=== PATIENT | female | born 1980 | race Caucasian/White ===

== ENCOUNTER → 2016-05-18 | Outpatient (CLI) | payer BC ==
[~2016-05-18] MED LIST: MISC-696; PEDICHW50 PO
== END | disposition home or self-care (01) ==
LOC: C.PAPS 08:28
PROVIDERS: ATTEND Obstetrics & Gynecology
DX: Z01.419 Encounter for gynecological examination (general) (routine) without abnormal findings (principal)

== ENCOUNTER → 2017-05-27 | Outpatient (CLI) | payer BC ==
[~2017-05-27] MED LIST changes: -MISC-696; +MISC-836
[2017-05-27 16:47] LABS: BASO % 0.2 %; BASO ABS # 0.02 K/uL (0-0.2); EOS % 0.1 %; EOS ABS # 0.01 K/uL (0-0.5); HEMATOCRIT 44.7 % (37-47); HEMOGLOBIN 15.3 g/dL (12.0-16.0); IG# 0.02 K/uL (0.00-0.02); LYMPH % 21.5 %; LYMPH ABS # 2.06 K/uL (1.2-3.4); MEAN CORPUSCULAR HEMOGLOBIN 29.4 pg (25-34); MEAN CORPUSCULAR HGB CONC 34.2 g/dl (32-36); MEAN PLATELET VOLUME 9.3 fL (7.4-10.4); MONO % 9.3 %; MONO ABS # 0.89 K/uL (0.11-0.59); NEUT % 68.7 %; PLATELET COUNT 284 K/uL (130-400); RED CELL DISTRIBUTION WIDTH CV 12.8 % (11.5-14.5); RED CELL DISTRIBUTION WIDTH SD 40.2 fL (36.4-46.3)
[2017-05-27 16:57] LABS: ALBUMIN 4.1 gm/dl (3.4-5.0); ALT/SGPT 76 U/L (12-78); BLOOD UREA NITROGEN 17 mg/dl (7-18); CALCIUM 8.8 mg/dl (8.5-10.1); CARBON DIOXIDE 26 mmol/L (21-32); CREATININE 0.94 mg/dl (0.60-1.20); GLUCOSE 86 mg/dl (70-99); POTASSIUM 3.6 mmol/L (3.5-5.1); SODIUM 139 mmol/L (136-145)
[2017-05-27 17:07] LABS: ALKALINE PHOSPHATASE 73 U/L (45-117); AST/SGOT 18 U/L (15-37); TOTAL PROTEIN 7.6 gm/dl (6.4-8.2)
== END | disposition home or self-care (01) ==
LOC: C.LABBFT 11:51
PROVIDERS: ATTEND Physician Assistant Medical
DX: G43.909 Migraine, unspecified, not intractable, without status migrainosus (principal)

== ENCOUNTER → 2017-06-06 | Outpatient (CLI) | payer BC ==
[~2017-06-06] MED LIST changes: +GADAVIST IV PRN
--- NOTE | 2017-06-06 20:59 | DIAGNOSTIC IMAGING REPORT ---
BRAIN COMBO CLINICAL HISTORY: G43.909 Headache, migraine headache. Mental status change. COMPARISON STUDY: No previous studies for comparison. TECHNIQUE: Utilizing a 1.5 [employer] magnet and dedicated coil, multiplanar, multiecho imaging of the brain was performed pre and postcontrast administration. IV administration of 9.5 mL of Gadavist contrast was uneventful. FINDINGS: Diffusion-weighted images are negative for an acute ischemic event. Signal characteristics are unremarkable. The ventricular system is midline. Sella and parasellar regions are within normal limits. Postcontrast images are negative for an enhancing lesion. IMPRESSION: Normal study. The above report was generated using voice recognition software. It may contain grammatical, syntax or spelling errors. Electronically signed by: Arnulfo Francisco M.D. 06/06/2017 8:58 PM Dictated Date/Time: 06/06/2017 8:55 PM
== END | disposition home or self-care (01) ==
LOC: C.MRI 18:52
PROVIDERS: ATTEND Nurse Practitioner
DX: G43.909 Migraine, unspecified, not intractable, without status migrainosus (principal)

== ENCOUNTER → 2017-07-22 | Outpatient (CLI) | payer BC ==
[~2017-07-22] MED LIST changes: -GADAVIST IV PRN
[2017-07-22 14:59] LABS: T3 FREE 2.38 pg/ml (2.30-4.20)
== END | disposition home or self-care (01) ==
LOC: C.LAB1850 13:17
PROVIDERS: ATTEND Internal Medicine Endocrinology, Diabetes & Metabolism
DX: E03.9 Hypothyroidism, unspecified (principal); E55.9 Vitamin D deficiency, unspecified

== ENCOUNTER → 2017-08-11 | Outpatient (CLI) | payer BC | END | disposition home or self-care (01) | LOC: C.LABBFT 13:49 | PROVIDERS: ATTEND Obstetrics & Gynecology | DX: Z32.01 Encounter for pregnancy test, result positive (principal); E03.9 Hypothyroidism, unspecified ==

== ENCOUNTER → 2017-10-27 | Outpatient (CLI) | payer BC | END | disposition home or self-care (01) | LOC: C.LAB1850 12:38 | PROVIDERS: ATTEND Obstetrics & Gynecology | DX: O09.522 Supervision of elderly multigravida, second trimester (principal) ==

== ENCOUNTER 2018-04-03 19:32 | Inpatient (IN) ==
[2018-04-03] MEDS ORDERED: OXYTOCIN 30 UNITS/500 ML BAG IV PRN ×2 (19:41→23:51)
[2018-04-03] MEDS ORDERED: LACTATED RINGER'S 1,000 ML IV PRN ×2 (19:41→20:12)
[2018-04-03] MEDS ORDERED: LACTATED RINGER'S 1,000 ML IV SCH (19:45)
[2018-04-03] MEDS ORDERED: BUPIVACAINE 0.25% 30 ML VIAL ONE (19:53)
[2018-04-03] MEDS ORDERED: ePHEDrine sulfate 50 MG/ML AMP ONE (19:53)
[2018-04-03] MEDS ORDERED: fentaNYL 2MCG/ML ROPIV 1.25MG/ML 100 ML BAG EPI ONE (19:54)
[2018-04-03] MEDS ORDERED: fentaNYL citrate 100 MCG/2 ML VIAL ONE (19:54)
[2018-04-03 20:04] LABS: Hematocrit (blood only) 39.6 % (37-47); Hemoglobin 13.5 g/dL (12.0-16.0); Mean Corpuscular Volume 81.1 fL (80-100); Mean Platelet Volume 9.6 fL (7.4-10.4); Platelet Count 258 K/uL (130-400); RDW Coefficient of Variation 13.2 % (11.5-14.5); RDW Standard Deviation 38.5 fL (36.4-46.3); Red Blood Count 4.88 M/uL (4.2-5.4); White Blood Count 8.61 K/uL (4.8-10.8)
[2018-04-03] MEDS ORDERED: NALOXONE HCL 1 MG in SODIUM CHLORIDE 0.9% 1000ML 1,000 ML IV PRN (20:12)
[2018-04-03] MEDS ORDERED: ONDANSETRON INJ 2 MG/ML 2 ML VIAL IV PRN (20:12)
[2018-04-03] MEDS ORDERED: NALBUPHINE HCL INJ 10 MG/ML AMP IV PRN (20:12)
[2018-04-03] MEDS ORDERED: fentaNYL 2MCG/ML ROPIV 1.25MG/ML 100 ML BAG EPI PRN (20:12)
[2018-04-03] MEDS ORDERED: DiphenhydrAMINE HCL 50 MG/ML VIAL IV PRN (20:12)
[2018-04-03] MEDS ORDERED: ePHEDrine sulfate 50 MG/ML AMP IV PRN (20:12)
[2018-04-03] MEDS ORDERED: NALOXONE HCL 0.4 MG/1 ML VIAL/CARP IV PRN (20:12)
--- NOTE | 2018-04-03 20:13 | Anesthesiology Consultation ---
Date of Service April 03, 2018 Assessment & Plan (1) Encounter for pre-operative examination: Chart Review Chart Review: Patient NOT seen in Pre Admission Testing and Acceptable Risk for Labor Epidural Consults Requested none History Height/Weight Height: 5 ft 4 in Weight: 99.337 kg Allergies Allergy/AdvReac Type Severity Reaction Status Date / Time No Known Allergies Allergy Verified 04/03/18 20:12 Beta Tristan Beta Tristan Taken Within 24 Hours: No Past Medical History Medical History History of tooth extraction Hypothyroidism Polycystic ovarian disease Past Anesthesia History No Hx of Anesthesia Complications History of PONV No Motion Sickness Screening History of Motion Sickness: No Social History Smoking Status: Never smoker Do You Dip or Chew Tobacco: No Hx Alcohol Use: No Hx Substance Use: No substance use type: does not use Exercise / Class Metabolic Activity II 4-5 Yardwork/Stairs/Walk up hill Physical Exam Vital Signs Last Vital Signs Pulse 80 04/03/18 20:08 Resp 18 04/03/18 19:51 BP 135/83 04/03/18 19:57 Pulse Ox 100 04/03/18 20:08 Testing Laboratory Results 04/03/18 19:49
--- NOTE | 2018-04-03 20:27 | History & Physical Report ---
Date of Service April 03, 2018 Assessment & Plan (1) Normal labor: patient is requesting epidural analgesia see orders for further directions anticipate vaginal . Present on Admission?: Yes History of Present Illness Primary Care Provider: MAX Mahmood Patient is a 37 yo white female [facility] 04/03/18 who presents at 40 weeks with SPROM of meconium stained fluid at 1900 hrs. She ahd been having irregular ctns all day. After SPROM the contractions began to become more regular & now they are every 2 minutes. GBS -negative. complicated by hypothyroidism for which she takes Tirosint 150 mcg daily. Allergies Allergy/AdvReac Type Severity Reaction Status Date / Time No Known Allergies Allergy Verified 04/03/18 20:12 Home Medications Home Medications Medication Instructions Recorded Confirmed Type amoxicillin 875 mg PO BID 04/03/18 04/03/18 History levothyroxine [Tirosint] 150 mcg PO DAILY 04/03/18 04/03/18 History vit-iron fum-folic ac 1 tab PO DAILY 04/03/18 04/03/18 History [ Vitamin] Patient History Medical History History of tooth extraction Hypothyroidism Polycystic ovarian disease Social History marital status: Current Living Situation: Spouse and Family Other Information That Helps Us Care for You: No Feels Safe at Home: Yes Safety Concerns: Feels Safe At This Time Smoking Status: Never smoker Do You Dip or Chew Tobacco: No Hx Alcohol Use: No Hx Substance Use: No Beliefs That Will Affect Care: None Preferred Language: Kyrgyz Communication Ability: Effective 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 Review of Systems All systems reviewed & are unremarkable except as noted in HPI & below Physical Exam 2 Vital Signs (Past 24 Hours): Last Vital Signs Pulse 71 04/03/18 20:18 Resp 18 04/03/18 19:51 BP 135/83 04/03/18 19:57 Pulse Ox 100 04/03/18 20:18 Constitutional: WD/WN, vitals as above Genitourinary: OB Exam Abdomen: + vertex and + regular contractions (every 2 minutes & moderate) Manual OB Exam: + cervical dilation 7 cm, + cervical effacement 100% and + station 0 OB Exam Monitor Tracing: + external FHT monitor used, + external uterine monitor used, + normal FHT variability and + early decelerations present
[2018-04-03 20:44] LABS: Mean Corpuscular Hgb Conc 34.1 g/dL (32-36)
[2018-04-03] MEDS ORDERED: AMOXICILLIN SUSP 250 MG/5 ML 100 ML BTL PO SCH (21:00)
[2018-04-03] MEDS ORDERED: AMOXICILLIN 875 MG PO SCH ×2 (21:00)
--- NOTE | 2018-04-03 21:19 | Anesthesia Procedure Note ---
Date of Service April 03, 2018 Anesthesia Post Epidural Note Vital Signs Vital Signs: Temp Pulse Resp BP Pulse Ox 04/03/18 21:12 73 112/55 L 04/03/18 21:03 76 98 04/03/18 20:58 112 H 100 04/03/18 20:53 91 H 136/79 100 04/03/18 20:48 82 100 04/03/18 20:43 73 123/64 100 04/03/18 20:42 72 143/82 H 04/03/18 20:38 75 100 04/03/18 20:37 68 134/78 04/03/18 20:34 71 130/73 04/03/18 20:33 66 100 04/03/18 20:31 70 126/66 04/03/18 20:30 36.5 C 70 128/69 04/03/18 20:28 72 100 04/03/18 20:25 67 142/70 H 04/03/18 20:23 71 100 04/03/18 20:18 71 100 04/03/18 20:13 82 100 04/03/18 20:08 80 100 04/03/18 19:57 65 135/83 04/03/18 19:51 65 18 135/83 Notes Mental Status: alert / awake / arousable Patient Amnestic to Procedure: No Nausea / Vomiting: adequately controlled Pain: adequately controlled Airway Patency, RR, SpO2: stable & adequate BP & HR: stable & adequate Hydration State: stable & adequate Neuraxial Anesthesia: was administered and sensory block is resolving Anesthetic Complications: no major complications apparent and Pt Satisfied with anesthetic care Epidural: Removed without complications and With tip intact
--- NOTE | 2018-04-03 22:24 | Delivery Summary ---
DATE OF OPERATION: 04/03/2018 DATE OF DELIVERY: 04/03/2018. Patient is a 37 year-old G4, para 2-0-1-2 white female, EDC of 04/03/2018, who presented after spontaneous rupture of membranes with meconium-stained fluid at approximately 1900 hours. She then proceeded to contract regularly every 2 minutes. She received epidural analgesia, which was effective. She pushed effectively over intact perineum for delivery of a viable male infant. Mouth and nasopharynx were suctioned on the perineum. There was a hand also presenting, which was delivered after the vertex. There was an occult prolapsed cord as well as a nuchal cord present upon delivery, which were all reduced prior to delivery of the rest of the infant. The was then placed on the mother's abdomen for further attention and drying. The cord was clamped and cut. There was spontaneous crying and the infant was moving all 4 limbs. After cord blood donation was obtained, the placenta was expressed intact with a 3-vessel cord. The perineum was intact. Estimated blood loss was 200 mL. Mother and infant are doing well after delivery. I attest to the content of the Intraoperative Record and any orders documented therein. Any exceptions are noted below. MTDD
[2018-04-03] MEDS ORDERED: BENZOCAINE 20% AER SPR 82.5 GM CAN EXT PRN (23:51)
[2018-04-03] MEDS ORDERED: HYDROCORTISONE ACETATE 25 MG SUPP PR PRN (23:51)
[2018-04-03] MEDS ORDERED: OXYCODONE/ACETAMINOPHEN 5mg/325mg TAB PO PRN (23:51)
[2018-04-03] MEDS ORDERED: ACETAMINOPHEN 325 MG TAB PO PRN (23:51)
[2018-04-03] MEDS ORDERED: SUPERCREAM 0.870% 15 GM JAR EXT PRN (23:51)
--- NOTE | 2018-04-04 05:44 | Obstetrical Progress Note ---
Date of Service <Catrachito Fiore DO - Last Filed: 04/04/18 06:20> April 04, 2018 Assessment & Plan <Catrachito Fiore DO - Last Filed: 04/04/18 06:20> (1) Vaginal delivery: Day #:: 1 Subjective <Catrachito Fiore DO - Last Filed: 04/04/18 06:20> Ambulation: ambulating normally Voiding: no voiding problems Diet Tolerance:: regular diet Lochia:: Small Feeding Type:: breast feeding Violeta is doing well this morning, no acute complaints or concerns. She denies chest pain, shortness of breath, nausea, vomiting, fever, chills. Physical Exam <Catrachito Fiore DO - Last Filed: 04/04/18 06:20> Vital Signs (Past 24 Hours) Last Vital Signs Temp 36.9 C 04/04/18 04:00 Pulse 70 04/04/18 04:00 Resp 18 04/04/18 04:00 BP 126/84 04/04/18 04:00 Pulse Ox 98 04/03/18 21:03 Constitutional WD/WN, vitals as above cooperative Eyes + anicteric sclerae and EOM intact bilaterally Neck normal visual inspection and trachea midline Respiratory normal respiratory effort, lungs clear to auscultation Cardiovascular RRR, no murmur, no edema Gastrointestinal (Abdomen) umbilicus firm and 2cm below umbilicus Musculoskeletal Head/Neck/Chest: normocephalic Skin no rashes, warm and dry Neurologic moves all extremities and awake Psychiatric A+Ox3, euthymic affect Results & Data <Catrachito Fiore DO - Last Filed: 04/04/18 06:20> Laboratory Results Laboratory Results - last 24 hr 04/03/18 19:49 WBC 8.61 RBC 4.88 Hgb 13.5 Hct 39.6 MCV 81.1 MCH 27.7 MCHC 34.1 RDW Std Deviation 38.5 RDW Coeff of Luma 13.2 Plt Count 258 MPV 9.6 Medications Administered Amoxicillin (Amoxicillin Susp) 875 mg PO BID CRYSTAL Stop: 04/04/18 06:00 Last Admin: 04/03/18 21:50 Dose: 875 mg Oxytocin (Pitocin) 30 units in 500 mls @ 999 mls/hr IV .Q1H30M PRN; Protocol PRN Reason: Bleeding Control Stop: 05/03/18 19:40 Last Titration: 04/03/18 21:25 Dose: 59.94 units/hr, 999 mls/hr Admin: 04/03/18 21:04 Dose: 20 units/hr, 333.3 mls/hr <Joi Sky MD, FACOG - Last Filed: 04/04/18 06:37> Co-Signing Physician Notes Resident Physician Supervision Note: I interviewed and examined the patient. Discussed with Dr. Fiore and agree with findings and plan as documented in the note. Any exceptions or clarifications are listed here: [None] Documented By: Joi Sky MD, FACOG
[2018-04-04] MEDS: LEVOTHYROXINE SODIUM 150 MCG TABLET PO SCH (06:59)
[2018-04-04] MEDS: IBUPROFEN 600 MG TAB PO PRN ×4 (07:00→23:44)
[2018-04-04] MEDS: PRENATAL VITAMIN 1 TAB PO SCH (08:10)
[2018-04-04] MEDS: DOCUSATE SODIUM 100 MG CAP PO SCH ×2 (08:10→19:41)
[2018-04-04] MEDS ORDERED: PRENATAL VITAMIN 1 TAB PO SCH (09:00)
[2018-04-04] MEDS ORDERED: BISACODYL 5 MG TABEC PO SCH (20:00)
[2018-04-05] MEDS: IBUPROFEN 600 MG TAB PO PRN (05:52)
[2018-04-05] MEDS ORDERED: BISACODYL 10 MG SUPP PR PRN (06:00)
--- NOTE | 2018-04-05 06:39 | Obstetrical Progress Note ---
Date of Service <Catrachito Fiore - Last Filed: 04/05/18 06:39> April 05, 2018 Assessment & Plan <Catrachito Fiore DO - Last Filed: 04/05/18 06:39> (1) Vaginal delivery: PPD #2, continue routine post- care until discharge home today, all questions and concerns addressed Subjective <Catrachito Fiore - Last Filed: 04/05/18 06:39> Violeta is doing well this morning, no acute events overnight, no chest pain, shortness of breath, fever, chills, leg pain. Physical Exam <Catrachito Fiore - Last Filed: 04/05/18 06:39> Vital Signs (Past 24 Hours) Last Vital Signs Temp 36.4 C L 04/04/18 23:45 Pulse 61 04/04/18 23:45 Resp 18 04/04/18 23:45 BP 122/83 04/04/18 23:45 Pulse Ox 99 04/04/18 19:20 Constitutional WD/WN, vitals as above cooperative Eyes + anicteric sclerae and EOM intact bilaterally Neck normal visual inspection and trachea midline Respiratory normal respiratory effort, lungs clear to auscultation Cardiovascular RRR, no murmur, no edema Musculoskeletal Head/Neck/Chest: normocephalic Skin no rashes, warm and dry Neurologic moves all extremities and awake Psychiatric A+Ox3, euthymic affect Results & Data <Catrachito Fiore DO - Last Filed: 04/05/18 06:39> Medications Administered Acetaminophen (Tylenol) 650 mg PO Q6H PRN PRN Reason: Pain/REID/Fever Stop: 05/03/18 23:50 Last Admin: 04/04/18 15:30 Dose: 650 mg Cocaine HCl (Supercream 0.870%) 1 gm EXT BID PRN PRN Reason: Hemorrhoidal Inflammation Stop: 04/17/18 23:50 Last Admin: 04/04/18 15:32 Dose: 1 gm Docusate Sodium (Colace) 100 mg PO BID CRYSTAL Stop: 05/04/18 08:59 Last Admin: 04/04/18 19:41 Dose: 100 mg Admin: 04/04/18 08:10 Dose: 100 mg Oxytocin (Pitocin) 30 units in 500 mls @ 999 mls/hr IV .Q1H30M PRN; Protocol PRN Reason: Bleeding Control Stop: 05/03/18 19:40 Last Titration: 04/03/18 21:25 Dose: 59.94 units/hr, 999 mls/hr Admin: 04/03/18 21:04 Dose: 20 units/hr, 333.3 mls/hr Ibuprofen (Motrin) 600 mg PO Q4H PRN PRN Reason: Pain/REID/Cramping/Fever Stop: 05/03/18 23:50 Last Admin: 04/05/18 05:52 Dose: 600 mg Admin: 04/04/18 23:44 Dose: 600 mg Admin: 04/04/18 19:41 Dose: 600 mg Admin: 04/04/18 12:43 Dose: 600 mg Admin: 04/04/18 07:00 Dose: 600 mg [facility]othy[facility]ine [facility]) [facility] Stop: 05/04/18 06:29 Last Admin: 04/04/18 06:59 Dose: 150 mcg Prenat Multivit/Loiza/Iron/Folic Ac ( Vitamin) 1 tab PO DAILY [facility] Stop: 05/04/18 08:59 Last Admin: 04/04/18 08:10 Dose: 1 tab <Tyler Pruitt MD - Last Filed: 04/05/18 08:14> Co-Signing Physician Notes Patient seen and evaluated and agree with the above findings, assessment and plan.
[2018-04-05] MEDS: LEVOTHYROXINE SODIUM 150 MCG TABLET PO SCH (06:41)
[2018-04-05 06:51] LABS: Hematocrit (blood only) 33.4 % (37-47); Hemoglobin 10.8 g/dL (12.0-16.0)
[2018-04-05] MEDS: DOCUSATE SODIUM 100 MG CAP PO SCH (08:51)
[2018-04-05] MEDS: PRENATAL VITAMIN 1 TAB PO SCH (08:52)
[2018-04-05] MEDS ORDERED: DIPHTHERIA/TETANUS/PERTUSSIS 0.5 ML SYR/VIAL IM ONE (09:00)
== END 2018-04-05 13:45 | disposition home or self-care (01) | DRG 807 ==
LOC: OPB 19:32 → 4S1 19:33 → 4S2 23:50